=== PATIENT | female | born 1995 | race Caucasian/White ===

== ENCOUNTER → 2022-08-24 | Outpatient (CLI) | payer SELFPAY, OTHER ==
--- NOTE | 2022-08-24 08:55 | RDU_ITS ---
Reason For Study: HX MALS Post-OP Aorta Proximal abdominal aorta 1.58 x 1.62 cm . Proximal abdominal aorta - 82.7 cm/sec . Distal abdominal aorta - 46.8 cm/sec . Celiac Artery INGRID/Prox - 217.0/70.0 cm/sec Hepatic Artery Prox - 237.7/76.9 cm/sec SMA Prox - 249.3/41.6 cm/sec SMA Mid - 163.8/25.5 cm/sec SMA Dist - 137.3/25.4 cm/sec BREANA Prox 97.7/5.7 cm/sec Rt and Lt Renal Veins appear spontaneous, phasic and patent. SMV appears spontaneous, phasic and patent. Procedures Ultrasound evaluation of Mesenteric Arteries and Renal Veins for MALS procedure Post-Op. VL/Renal Artery Duplex Ultrasound Interpretation Summary Celiac artery patent with normal velocities, no evidence of stenosis. Superior mesenteric artery patent with normal velocities, no evidence of stenos is. Inferior mesenteric artery patent with normal velocities, no evidence of stenos is. Ordering Physician: Erin Mahmood Referring Physician: Erin Mahmood Performed By: Fernando Reina RVT
== END | disposition home or self-care (01) ==
PROVIDERS: Referring Provider Nurse Practitioner Family; Visit Provider Nurse Practitioner Family
DX: K55.8 Other vascular disorders of intestine (principal)
CPT/HCPCS: 80053; 93975

== ENCOUNTER → 2022-12-25 | Outpatient (CLI) | payer SELFPAY, OTHER ==
--- NOTE | 2022-12-25 07:52 | RDU_ITS ---
Reason For Study: S/P Celiac A compression surgery Aorta Proximal abdominal aorta 1.64 cm . Proximal abdominal aorta peak systolic velocity is 123.5 cm/sec . Distal abdominal aorta 1.40 cm . Distal abdominal aorta peak systolic velocity is 50.1 cm/sec . Celiac A INGRID - 202.0/64.5 cm/sec Celiac A INGRID w/INSP - 145.2/43.6 cm/sec Celiac A INGRID w/EXP - 199.0/61.5 cm/sec Hepatic A - 272.0/58.5 cm/sec Splenic A - 262.7/81.7 cm/sec SMA INGRID - 223.9/35.0 cm/sec SMA INGRID w/INSP - 191.9/34.2 cm/sec SMA INGRID w/EXP - 169.3/31.5 cm/sec SMA Prox - 176.9/30.6 cm/sec SMA Mid - 115.8/18.2 cm/sec SMA Dist - 106.6/18.9 cm/sec LRA Prox - 93.8/44.3 cm/sec RRA Prox - 103.4/41.3 cm/sec BREANA Prox - 95.5/9.9 cm/sec RRV - Appears spontaneous and phasic LRV - Appears spontaneous and phasic, elevated venous velocity at prox vessel. Possible vein compression. RADHA - Spontaneous and phasic GIOVANI - Spontaneous and pulsatile. VL/Renal Artery Duplex Ultrasound Interpretation Summary Celiac artery patent with no evidence of stenosis or dynamic compression Superior mesenteric artery patent with no stenosis Right renal artery patent with no stenosis Left renal artery patent with no stenosis Right renal vein patent Left renal vein patent Right iliac vein patent with normal flow pattern Left iliac vein patent with pulsatile waveforms Ordering Physician: Erin Mahmood Referring Physician: Erin Mahmood Performed By: Fernando Reina RVT
== END | disposition home or self-care (01) ==
LOC: CVS 07:52
PROVIDERS: PCP Nurse Practitioner Family; Referring Provider Nurse Practitioner Family; Visit Provider Nurse Practitioner Family
DX: I77.4 Celiac artery compression syndrome (principal)
CPT/HCPCS: 93975

== ENCOUNTER 2023-10-21 08:10 | Outpatient (CLI) | payer SELFPAY, OTHER ==
--- NOTE | 2023-10-21 08:13 | RDU_ITS ---
Reason For Study: HX MALS Surgery / Lt Renal V Stent Aorta Proximal abdominal aorta 1.57 x 1.51 cm . Proximal abdominal aorta peak systolic velocity is 124.9 cm/sec . Distal abdominal aorta 1.36 x 1.37 cm . Distal abdominal aorta peak systolic velocity is 70.5 cm/sec . . . Celiac A INGRID - 214.4/73.1 cm/sec Celiac A INGRID w/INSP - 167.1/50.0cm/sec Celiac A INGRID w/EXP - 163.9/53.1 cm/sec Hepatic A - 212.1/66.8 cm/sec Splenic A - 106.4/48.7 cm/sec SMA INGRID - 252.3/66.5 cm/sec SMA Prox - 197.4/32.5 cm/sec SMA Mid - 169.2/43.9 cm/sec SMA Dist - 158.8/36.1 cm/sec BREANA INGRID - 135.5/14.6 cm/sec Lt Renal V - Appears spontaneous and patent at distal vessel, with continous flow at prox and mid. Stent noted measuring approximately 0.71cm x 0.70cm in transverse. Lt Iliac V - Compressible, spontaneous and continuous flow noted. Vein measures approximately 0.43cm in long axis. Procedures Mesenteric Artery Duplex exam with B-Mode, Pulsed wave and Color Doppler. VL/Renal Artery Duplex Ultrasound Interpretation Summary Celiac artery patent with normal velocities and no evidence of stenosis. No gary nge with respiratory phase. Superior mesenteric artery patent with normal velocities and no evidence of kia nosis. Inferior mesenteric artery patent with normal velocities and no evidence of kia nosis. Left renal vein stent patent with normal flow pattern. Ordering Physician: Curtis Sargent Referring Physician: Curtis Sargent Performed By: Fernando Reina RVT and Student
== END 2023-10-21 23:59 | disposition home or self-care (01) ==
LOC: CVS 08:11
PROVIDERS: PCP Internal Medicine Infectious Disease; Referring Provider Internal Medicine Infectious Disease; Visit Provider Internal Medicine Infectious Disease
DX: I77.1 Stricture of artery (principal)
CPT/HCPCS: 93975

== ENCOUNTER → 2024-01-19 | Outpatient (CLI) | payer SELFPAY, OTHER ==
--- NOTE | 2024-01-19 09:02 | RDU_ITS ---
Reason For Study: HX MALS procedure / LRV Stent Aorta Proximal abdominal aorta 1.47 x 1.49 cm . Proximal abdominal aorta peak systolic velocity is 116.2 cm/sec . Distal abdominal aorta 1.15 x 1.12 cm . Distal abdominal aorta peak systolic velocity is 83.2 cm/sec . . . Celiac A INGIRD - 151.2/52.6 cm/sec Celiac A INGRID w/INSP - 94.4/31.7cm/sec Celiac A INGRID w/EXP - 125.8/33.8 cm/sec Hepatic A - 93.5/18.9 cm/sec Splenic A - 146.2/40.8 cm/sec SMA INGRID - 195.9/20.0 cm/sec SMA Prox - 153.9/24.6 cm/sec SMA Mid - 131.2/18.1 cm/sec SMA Dist - 124.7/27.8 cm/sec BREANA INGRID - 139.9/15.7 cm/sec Lt Renal V - Appears spontaneous and phasic throughout. Stent noted measuring approximately 0.84cm x 0.84cm in transverse. Lt Iliac V - spontaneous and continuous flow noted. Vein measures approximately 0.48cm in long axis. Procedures Mesenteric Artery Duplex exam with B-Mode, Pulsed wave and Color Doppler. VL/Renal Artery Duplex Ultrasound Interpretation Summary Celiac artery patent with normal velocities and no dynamic compression with res piratory phase. Superior mesenteric artery patent with normal velocities and no evidence of kia nosis Inferior mesenteric artery patent. Left renal vein stent patent with phasic flow. Left iliac vein patent with continuous flow Ordering Physician: Curtis Sargent Referring Physician: Curtis Sargent Performed By: Fernando Reian, RVT
== END | disposition home or self-care (01) ==
LOC: CVS 08:59
PROVIDERS: PCP Internal Medicine Infectious Disease; Referring Provider Internal Medicine Infectious Disease; Visit Provider Internal Medicine Infectious Disease
DX: I77.1 Stricture of artery (principal); Z95.820 Peripheral vascular angioplasty status with implants and grafts
CPT/HCPCS: 93975

== ENCOUNTER → 2024-04-27 | Outpatient (CLI) | payer SELFPAY, OTHER ==
--- NOTE | 2024-04-27 07:44 | RDU_ITS ---
Reason For Study: Celiac Artery Stenosis Aorta Proximal abdominal aorta 1.73 x 1.77 cm . Proximal abdominal aorta peak systolic velocity is 102.1 cm/sec . . Celiac A INGRID - 157.6/54.7 cm/sec Celiac A INGRID w/INSP - 140.2/42.3 cm/sec Celiac A INGRID w/EXP - 169.0/43.2 cm/sec Hepatic A - 195.8/58.8 cm/sec Splenic A - 155.1/51.4 cm/sec SMA INGRID - 251.3/25.5 cm/sec SMA INGRID w/ INSP -157.3/18.0 cm/sec SMA INGRID w/ EXP - 221.7/36.6 cm/sec SMA Prox - 119.0/20.7 cm/sec SMA Mid - 122.4/17.2 cm/sec SMA Dist - 87.5/5.3 cm/sec BREANA INGRID - 133.8/19.7 cm/sec Lt Renal V - Appears spontaneous and phasic throughout. Stent noted measuring approximately 0.83cm in long axis Lt Iliac V - spontaneous and continuous flow noted. Vein measures approximately 0.50cm in long axis. Procedures Mesenteric Artery Duplex exam with B-Mode, Pulsed wave and Color Doppler. VL/Renal Artery Duplex Ultrasound Interpretation Summary Celiac artery patent with normal velocities and no evidence of stenosis or ketan marian compression. Superior mesenteric artery patent with normal velocities and no evidence of kia nosis or dynamic compression. Inferior mesenteric artery patent with normal velocities and no evidence of kia nosis Left renal vein stent patent with normal venous flow pattern. Left iliac vein patent with continuous flow noted. Ordering Physician: Curtis Sargent Referring Physician: Curtis Sargent Performed By: Fernando Reina, RVT
== END | disposition home or self-care (01) ==
PROVIDERS: PCP Internal Medicine Infectious Disease; Referring Provider Internal Medicine Infectious Disease; Visit Provider Internal Medicine Infectious Disease
DX: I77.4 Celiac artery compression syndrome (principal)
CPT/HCPCS: 93975